=== PATIENT | male | born 1980 | race Caucasian/White ===

== ENCOUNTER 2022-04-07 13:04 | Outpatient (CLI) | payer OTHER, SELFPAY ==
[2022-04-07 13:20] LABS: Hematocrit 48.9 % (37.0-53.0); Hemoglobin* 16.7 gm/dL (13.5-17.5); Mean Corpuscular HGB Conc 34 gm/dL (32-36); Mean Corpuscular Hemoglobin 32 pg (26-34); Mean Corpuscular Volume 94 fL (80-100); Platelet Count* 180 K/uL (140-440); Red Blood Count 5.22 m/uL (4.30-5.90); White Blood Count* 6.87 K/uL (4.50-11.00)
[2022-04-07 13:21] LABS: Slide Review Reflex No
== END 2022-04-07 13:05 | disposition home or self-care (01) ==
LOC: LKVREF 13:04
PROVIDERS: PCP Physician Assistant Medical; Visit Provider Physician Assistant Medical
DX: Z00.00 Encounter for general adult medical examination without abnormal findings (principal); F90.9 Attention-deficit hyperactivity disorder, unspecified type; Z13.6 Encounter for screening for cardiovascular disorders
CPT/HCPCS: 80048; 80061; 80306; 85027

== ENCOUNTER 2023-07-22 10:08 | Outpatient (CLI) | payer OTHER, SELFPAY | END 2023-07-22 10:09 | disposition home or self-care (01) | PROVIDERS: PCP Physician Assistant Medical; Visit Provider Physician Assistant Medical | DX: E78.5 Hyperlipidemia, unspecified (principal); R03.0 Elevated blood-pressure reading, without diagnosis of hypertension; Z13.29 Encounter for screening for other suspected endocrine disorder; Z51.81 Encounter for therapeutic drug level monitoring | CPT/HCPCS: 80053; 80061; 80306; 84443 ==

== ENCOUNTER 2024-04-06 15:07 | Outpatient (CLI) | payer OTHER, SELFPAY | END 2024-04-06 15:08 | disposition home or self-care (01) | LOC: NFLDREF 04-08 09:33 | PROVIDERS: PCP Physician Assistant Medical; Referring Provider Physician Assistant Medical; Visit Provider Physician Assistant Medical | DX: Z00.00 Encounter for general adult medical examination without abnormal findings (principal); R73.09 Other abnormal glucose; R79.89 Other specified abnormal findings of blood chemistry; F17.200 Nicotine dependence, unspecified, uncomplicated; F90.9 Attention-deficit hyperactivity disorder, unspecified type; M77.12 Lateral epicondylitis, left elbow | CPT/HCPCS: 80076; 86703; 86803 ==